=== PATIENT | female | born 1990 | race Caucasian/White ===

== ENCOUNTER 2023-01-04 11:24 | Emergency (ER) | payer OTHER, BC ==
[~2023-01-04] VITALS: Ht 160 cm; Wt 97.5 kg
[~2023-01-04 11:24] MED LIST: MULVITMINE PO
[2023-01-04] MEDS ORDERED: CYCLOBENZAPRINE5 MG PO (12:29)
== END 2023-01-04 12:58 | disposition home or self-care (01) ==
LOC: ER 11:24
DX: S46.812A Strain of other muscles, fascia and tendons at shoulder and upper arm level, left arm, initial encounter (principal); M54.2 Cervicalgia; M25.531 Pain in right wrist; Y04.8XXA Assault by other bodily force, initial encounter; Y99.0 Civilian activity done for income or pay; Z91.013 Allergy to seafood; Z79.899 Other long term (current) drug therapy
CPT/HCPCS: 73110; A9270; J1885

== ENCOUNTER 2023-02-04 10:35 | Day surgery (SDC) | payer BC ==
[~2023-02-04] VITALS: Ht 160 cm; Wt 101.1 kg
[~2023-02-04 10:35] MED LIST changes: +CYCLOBENZAPRINE5 MG PO
[2023-02-04] MEDS ORDERED: FLUTICASONE-SA1 EAC1 (11:12)
[2023-02-04] MEDS ORDERED: Adipex-P37.5 M1 (11:13)
[2023-02-04] MEDS ORDERED: Buspirone HCl15 MG (11:13)
[2023-02-04] MEDS ORDERED: INDERAL XL80 M1 (11:13)
[2023-02-04] MEDS ORDERED: BUTALB-ACETAMI1 EAC4 (11:14)
[2023-02-04] MEDS ORDERED: IRON18 MG (11:14)
[2023-02-04] MEDS ORDERED: RIZATRIPTAN10 MG (11:14)
[2023-02-04 14:07] VITALS: BP 107/61
== END 2023-02-04 13:33 | disposition home or self-care (01) ==
LOC: ORSCSDS 10:35
PROVIDERS: Student in an Organized Health Care Education/Training Program
PROC: 0DB98ZX Excision of Duodenum, Via Natural or Artificial Opening Endoscopic, Diagnostic (ICD-10-PCS; principal; 2023-02-04 12:15)
PROC: 0DB48ZX Excision of Esophagogastric Junction, Via Natural or Artificial Opening Endoscopic, Diagnostic (ICD-10-PCS; principal; 2023-02-04 12:15)
PROC: 0DBE8ZX Excision of Large Intestine, Via Natural or Artificial Opening Endoscopic, Diagnostic (ICD-10-PCS; principal; 2023-02-04 12:15)
PROC: 0DB78ZX Excision of Stomach, Pylorus, Via Natural or Artificial Opening Endoscopic, Diagnostic (ICD-10-PCS; principal; 2023-02-04 12:15)
DX: R10.31 Right lower quadrant pain (principal); R19.4 Change in bowel habit; D50.9 Iron deficiency anemia, unspecified; K44.9 Diaphragmatic hernia without obstruction or gangrene; K31.7 Polyp of stomach and duodenum; E66.01 Morbid (severe) obesity due to excess calories; Z68.41 Body mass index [BMI] 40.0-44.9, adult; Z79.899 Other long term (current) drug therapy; Z79.82 Long term (current) use of aspirin
CPT/HCPCS: 88305; 88341; 88342; J2250; J2704; J7120